=== PATIENT | female | born 1995 | race Caucasian/White ===

== ENCOUNTER 2020-02-21 00:06 | Inpatient (IN) | payer MEDICAID, OTHER ==
[~2020-02-21] VITALS: Ht 175.3 cm; Wt 74.7 kg
[2020-02-21 00:55] LABS: BASOPHILS % (AUTO) 0.6 % (0.0-2.0); EOSINOPHILS % (AUTO) 0.3 % (1.0-6.0); HEMOGLOBIN 13.5 g/dL (12.0-16.0); LYMPHOCYTES # (AUTO) 1.7 K/uL (1.0-4.8); LYMPHOCYTES % (AUTO) 21.4 % (22.0-44.0); MEAN CORPUSCULAR HGB CONC 32.8 G/dL (31.0-37.0); MEAN CORPUSCULAR VOLUME 94 fL (80-100); MONOCYTES # (AUTO) 0.6 K/uL (0.1-1.0); NEUTROPHILS # (AUTO) 5.6 K/uL (1.8-7.7); NEUTROPHILS % (AUTO) 70.7 % (40.0-70.0); PLATELET COUNT (AUTO) 213 K/uL (150-450); RED BLOOD CELL COUNT(AUTO) 4.35 MIL/uL (4.00-5.20)
[2020-02-21 01:02] LABS: ANION GAP 12 mmol/L (8-16); CALCIUM, TOTAL 9.4 mg/dL (8.8-10.5); CARBON DIOXIDE 26 mmol/L (22-29); CHLORIDE 101 mmol/L (98-107); GLOMERULAR FILTR. RATE CALC > 60 mL/min (>60); GLUCOSE,RANDOM 102 mg/dL (70-110); POTASSIUM 3.1 mmol/L (3.5-5.1); SODIUM SERUM 139 mmol/L (136-145); UREA NITROGEN, BLOOD 16 mg/dL (7-18)
[2020-02-21 01:09] LABS: ALANINE AMINOTRANSFERASE 30 U/L (12-78); ALBUMIN 4.5 g/dL (3.4-5.0); ALKALINE PHOSPHATASE 53 U/L (46-116); ASPARTATE AMINOTRANSFERASE 26 U/L (15-37); BILIRUBIN,TOTAL 0.8 mg/dL (0.1-1.0); TOTAL PROTEIN, SERUM 8.5 g/dL (6.4-8.2)
[2020-02-21] MEDS ORDERED: ALBUTEROL SULFATE 5 MG/ML 20 ML NEB SOLN [BULK] NEB ONE (01:36)
[2020-02-21 02:03] LABS: AMPHET/METH SCREEN,URINE POSITIVE (NEGATIVE); BARBITURATE SCREEN, URINE NEGATIVE (NEGATIVE); BENZODIAZEPINES SCREEN,URINE NEGATIVE (NEGATIVE); CANNABINOID SCREEN,URINE POSITIVE (NEGATIVE); COCAINE SCREEN,URINE NEGATIVE (NEGATIVE); METHADONE SCREEN, URINE NEGATIVE (NEGATIVE); OPIATE SCREEN,URINE NEGATIVE (NEGATIVE)
[2020-02-21 02:05] LABS: PHENCYCLIDINE SCREEN,URINE NEGATIVE (NEGATIVE)
[2020-02-21] MEDS ORDERED: POTASSIUM CHLORIDE 20 MEQ ER TABLET PO ONE (02:15)
[2020-02-21 02:26] LABS: HCG,QUANTITATIVE < 1 mIU/mL (0-6)
[2020-02-21] MEDS ORDERED: LORazepam 2 MG TABLET PO PRN (02:30)
[2020-02-21] MEDS ORDERED: ZOLPIDEM TARTRATE 10 MG TABLET PO PRN (02:30)
[2020-02-21] MEDS ORDERED: HALOPERIDOL 5 MG TABLET PO PRN (02:30)
[2020-02-21 03:34] LABS: APPEARANCE,URINE TURBID (CLEAR); BILIRUBIN,URINE NEGATIVE (NEGATIVE); GLUCOSE, URINE (UA) NEGATIVE (NEGATIVE); KETONES,URINE TRACE mg/dL (NEGATIVE); LEUKOCYTE ESTERASE ,URINE NEGATIVE (NEGATIVE); NITRATE,URINE NEGATIVE (NEGATIVE); OCCULT BLOOD,URINE LARGE (NEGATIVE); PH,URINE 5.5 (5.0-8.0); PROTEIN,URINE POS 1+ (NEGATIVE); UROBILINOGEN,URINE 0.2 mg/dL (<=1.0)
[2020-02-21 03:42] LABS: BACTERIA,URINE Many /HPF (None Seen); SQUAMOUS EPITHELIAL CELL,UR Few /LPF (None Seen)
[2020-02-21 08:30] VITALS: BP 100/59
[2020-02-21] MEDS: BuPROPion HCL XL 150 MG ER TABLET PO SCH (11:15)
[2020-02-21 16:00] VITALS: BP 120/73
[2020-02-21] MEDS: OLANZapine 5 MG TABLET PO SCH ×2 (17:00→17:15)
[2020-02-21] MEDS ORDERED: LOPERAMIDE HCL 2 MG CAPSULE PO PRN (21:00)
[2020-02-22 05:39] VITALS: BP 132/63
[2020-02-22 08:18] LABS: CHOL/HDL RATIO 2.1 (3.9-5.7)
[2020-02-22 08:21] VITALS: BP 107/60
[2020-02-22] MEDS: BuPROPion HCL XL 150 MG ER TABLET PO SCH (09:00)
[2020-02-22] MEDS: OLANZapine 5 MG TABLET PO SCH ×3 (09:00→17:36)
[2020-02-22 16:10] VITALS: BP 116/72
[2020-02-23 05:31] VITALS: BP 97/59
[2020-02-23 08:27] VITALS: BP 111/56
[2020-02-23] MEDS: BuPROPion HCL XL 150 MG ER TABLET PO SCH (09:00)
[2020-02-23] MEDS: OLANZapine 5 MG TABLET PO SCH ×2 (09:00→17:00)
[2020-02-23] MEDS ORDERED: IBUPROFEN 400 MG TABLET PO PRN ×2 (10:45→13:45)
[2020-02-23] MEDS ORDERED: MAGNESIUM HYDROXIDE SUSPENSION 30 ML UDCUP PO PRN ×2 (10:45→13:45)
[2020-02-23] MEDS ORDERED: LOPERAMIDE HCL 2 MG CAPSULE PO PRN ×2 (10:45→13:45)
[2020-02-23] MEDS ORDERED: GuaiFENesin/D-METHORPHAN [SUGAR-FREE] 200-20MG/10 ML SYRUP UDCUP PO PRN ×2 (10:45→13:45)
[2020-02-23] MEDS ORDERED: NICOTINE 14 MG/24 HOUR PATCH TD PRN ×2 (10:45→13:45)
[2020-02-23] MEDS ORDERED: PETROLATUM,WHITE 28 GM JELLY TP PRN ×2 (10:45→13:45)
[2020-02-23] MEDS ORDERED: ONDANSETRON HCL 4 MG TABLET PO PRN ×2 (10:45→13:45)
[2020-02-23] MEDS ORDERED: DOCUSATE SODIUM 100 MG CAPSULE PO PRN ×2 (10:45→13:45)
[2020-02-23] MEDS ORDERED: ALBUTEROL SULFATE HFA 90 MCG/PUFF 8 GM INHALER IH PRN ×2 (10:45→13:45)
[2020-02-23] MEDS ORDERED: CloNIDine HCL 0.1 MG TABLET PO PRN ×2 (10:45→13:45)
[2020-02-23] MEDS ORDERED: MAG HYDROX/AL HYDROX/SIMETH ES 30 ML SUSPENSION UDCUP PO PRN ×2 (10:45→13:45)
[2020-02-23] MEDS ORDERED: ACETAMINOPHEN 325 MG TABLET PO PRN ×2 (10:45→13:45)
[2020-02-23] MEDS: CEPHALEXIN MONOHYDRATE 500 MG CAPSULE PO SCH ×2 (12:10→17:36)
[2020-02-23 16:00] VITALS: BP 123/73
[2020-02-24 00:14] VITALS: BP 106/49
[2020-02-24 08:00] VITALS: BP 110/76
[2020-02-24] MEDS: OLANZapine 5 MG TABLET PO SCH ×2 (09:00→17:15)
[2020-02-24] MEDS: BuPROPion HCL XL 150 MG ER TABLET PO SCH (09:00)
[2020-02-24] MEDS: CEPHALEXIN MONOHYDRATE 500 MG CAPSULE PO SCH ×3 (09:12→17:15)
[2020-02-24 17:41] VITALS: BP 96/54
[2020-02-25 04:47] VITALS: BP 116/70
[2020-02-25 08:45] VITALS: BP 120/63
[2020-02-25] MEDS: CEPHALEXIN MONOHYDRATE 500 MG CAPSULE PO SCH ×3 (08:46→17:25)
[2020-02-25] MEDS: OLANZapine 5 MG TABLET PO SCH ×2 (08:46→17:25)
[2020-02-25] MEDS: BuPROPion HCL XL 150 MG ER TABLET PO SCH (08:46)
[2020-02-25] MEDS ORDERED: OLAN5TAB2 PO (10:53)
[2020-02-25] MEDS ORDERED: BUPR-93 PO (10:53)
[2020-02-25 16:28] VITALS: BP 104/60
== END 2020-02-25 18:00 | disposition home or self-care (01) | DRG 751 ==
LOC: EMS 00:08 → B3A 02:30
PROVIDERS: ADMIT Psychiatry & Neurology Psychiatry; ATTEND Psychiatry & Neurology Psychiatry
DX: F32.2 Major depressive disorder, single episode, severe without psychotic features (principal); R45.851 Suicidal ideations; E87.6 Hypokalemia; F15.10 Other stimulant abuse, uncomplicated; I10 Essential (primary) hypertension; N39.0 Urinary tract infection, site not specified; Z91.5 Personal history of self-harm; F41.9 Anxiety disorder, unspecified; F10.10 Alcohol abuse, uncomplicated; F12.10 Cannabis abuse, uncomplicated
CPT/HCPCS: 84132; 87086; G0480

== ENCOUNTER 2023-07-24 10:25 | Emergency (ER) | payer MEDICAID, OTHER ==
[~2023-07-24] VITALS: Ht 172.7 cm; Wt 84.1 kg
[~2023-07-24 10:25] MED LIST: BUPR-93 PO; OLAN5TAB52 PO
[2023-07-24 10:34] VITALS: BP 134/86; PULSE 78; RESP 16; TEMP 98.3
== END 2023-07-24 10:42 | disposition left against medical advice (07) ==
LOC: EMS 10:31
DX: Z04.89 Encounter for examination and observation for other specified reasons (principal); Z53.21 Procedure and treatment not carried out due to patient leaving prior to being seen by health care provider
CPT/HCPCS: 99281; Z7502

== ENCOUNTER 2025-10-03 17:06 | Inpatient (IN) | payer MEDICAID, OTHER ==
[~2025-10-03] VITALS: Ht 172.7 cm; Wt 70.8 kg
[~2025-10-03 17:06] MED LIST changes: -BUPR-93 PO; +MELA5TAB40 PO; +NALT50TA33 PO; +OLAN10TA26 PO; -OLAN5TAB52 PO
[2025-10-03 17:49] LABS: PLATELET COUNT (AUTO) 239 K/uL (150-450); RED BLOOD CELL COUNT(AUTO) 4.22 MIL/uL (4.00-5.20); RED CELL DISTRIBUTION WIDTH 14.9 % (11.5-14.5); WHITE BLOOD COUNT (AUTO) 15.4 K/uL (4.5-11.0)
[2025-10-03 18:00] LABS: CALCIUM, TOTAL 9.5 mg/dL (8.8-10.5); CREATININE 0.99 mg/dL (0.60-1.30); GLOMERULAR FILTR. RATE CALC > 60 mL/min (>60); GLUCOSE,RANDOM 90 mg/dL (70-110); SODIUM SERUM 144 mmol/L (136-145); UREA NITROGEN, BLOOD 23 mg/dL (7-18)
[2025-10-03] MEDS ORDERED: ZOLPIDEM TARTRATE 10 MG TABLET PO PRN (18:00)
[2025-10-03 18:06] LABS: APPEARANCE,URINE CLEAR (CLEAR); GLUCOSE, URINE (UA) NEGATIVE (NEGATIVE); LEUKOCYTE ESTERASE ,URINE NEGATIVE (NEGATIVE); NITRATE,URINE NEGATIVE (NEGATIVE); OCCULT BLOOD,URINE NEGATIVE (NEGATIVE); PH,URINE DRUG SCREEN 5.5 (5.0-8.0); SPECIFIC GRAVITIY, URINE 1.035 (1.003-1.030)
[2025-10-03 18:08] LABS: ALCOHOL, BLOOD (SERUM) < 3 mg/dL (0-10)
[2025-10-03 18:10] LABS: ASPARTATE AMINOTRANSFERASE 55 U/L (15-37); HCG,QUANTITATIVE < 1 mIU/mL (0-6); TOTAL PROTEIN, SERUM 8.2 g/dL (6.4-8.2)
[2025-10-03 18:13] LABS: ALCOHOL, URINE DRUG SCREEN NEGATIVE (NEGATIVE); AMPHET/METH SCREEN,URINE POSITIVE (NEGATIVE); BARBITURATE SCREEN, URINE NEGATIVE (NEGATIVE); CANNABINOID SCREEN,URINE POSITIVE (NEGATIVE); COCAINE SCREEN,URINE POSITIVE (NEGATIVE); METHADONE SCREEN, URINE NEGATIVE (NEGATIVE)
[2025-10-03 18:15] LABS: RBC MORPHOLOGY COMMENT NORMAL RBC MORPH
[2025-10-03] MEDS ORDERED: LORazepam 2 MG/ML VIAL ONE (18:18)
[2025-10-03] MEDS: LORazepam 2 MG/ML VIAL IM ONE (18:24)
[2025-10-03] MEDS: SODIUM CHLORIDE 0.9% 1,000 ML IV ONE (19:11)
[2025-10-03 19:44] LABS: COVID AG,FIA SOURCE NPH
[2025-10-03 20:03] LABS: SARS-COV2 (COVID) ANTIGEN,FIA Negative (Negative)
[2025-10-03 23:31] VITALS: O2SAT 97
[2025-10-04 01:14] VITALS: BP 120/68; PULSE 101; RESP 17; TEMP 98.2; O2SAT 99
[2025-10-04] MEDS ORDERED: INFLUENZA VIRUS VACCINE TVS (6MO+) 2025-26/PF 45 MCG/0.5 ML SYRINGE IM. ONE (01:30)
[2025-10-04] MEDS ORDERED: OMEPRAZOLE 20 MG CAPSULE PO PRN (07:30)
[2025-10-04] MEDS ORDERED: MAG HYDROX/ALUMINUM HYD/SIMETH ES 30 ML SUSPENSION UDCUP PO PRN (07:30)
[2025-10-04] MEDS ORDERED: IBUPROFEN 600 MG TABLET PO PRN (07:30)
[2025-10-04] MEDS ORDERED: LOPERAMIDE HCL 2 MG CAPSULE PO PRN (07:30)
[2025-10-04] MEDS ORDERED: BACITRACIN 28 GM OINTMENT TP PRN (07:30)
[2025-10-04] MEDS ORDERED: BENZOCAINE/MENTHOL [CEPACOL] LOZENGE PO PRN (07:30)
[2025-10-04] MEDS ORDERED: DOCUSATE SODIUM 100 MG CAPSULE PO PRN (07:30)
[2025-10-04] MEDS ORDERED: ACETAMINOPHEN 325 MG TABLET PO PRN (07:30)
[2025-10-04] MEDS ORDERED: ONDANSETRON 4 MG TABLET PO PRN (07:30)
[2025-10-04] MEDS ORDERED: ALBUTEROL SULFATE HFA 90 MCG/PUFF 8 GM INHALER IH PRN (07:30)
[2025-10-04] MEDS ORDERED: MAGNESIUM HYDROXIDE SUSPENSION 30 ML UDCUP PO PRN (07:30)
[2025-10-04] MEDS ORDERED: PETROLATUM,WHITE 28 GM JELLY TP PRN (07:30)
[2025-10-04 08:01] VITALS: BP 121/55; PULSE 56; RESP 16; TEMP 97.4; O2SAT 100
[2025-10-04 10:24] LABS: CHOL/HDL RATIO 1.8 (3.9-5.7); LDL CHOL (CALC.) 72.0 mg/dL (0-130)
[2025-10-04] MEDS: OLANZapine 10 MG RAPDIS TABLET PO SCH (20:11)
[2025-10-04 20:12] VITALS: BP 115/69; PULSE 65; RESP 16; TEMP 97; O2SAT 98
[2025-10-05 03:07] LABS: HEPATITIS C AB (EIA) Non Reactive (Non Reactive)
[2025-10-05 08:11] VITALS: BP 127/66; PULSE 83; RESP 17; TEMP 97.6; O2SAT 99
[2025-10-05 20:00] VITALS: BP 123/76; PULSE 84; RESP 18; TEMP 96.6; O2SAT 97
[2025-10-06 08:13] VITALS: BP 114/84; PULSE 71; RESP 16; TEMP 97.3; O2SAT 100
[2025-10-06 08:54] LABS: PLATELET COUNT (AUTO) 215 K/uL (150-450); RED BLOOD CELL COUNT(AUTO) 3.94 MIL/uL (4.00-5.20); RED CELL DISTRIBUTION WIDTH 14.8 % (11.5-14.5); WHITE BLOOD COUNT (AUTO) 4.8 K/uL (4.5-11.0)
[2025-10-06 20:53] VITALS: BP 115/82; PULSE 70; RESP 16; TEMP 97; O2SAT 98
[2025-10-07 08:00] VITALS: BP 103/65; PULSE 69; RESP 18; TEMP 97.4; O2SAT 98
[2025-10-07] MEDS ORDERED: OLAN10TA26 PO (12:30)
[2025-10-08] MEDS ORDERED: OLAN10TA26 PO (05:35)
== END 2025-10-07 18:27 | disposition home or self-care (01) | DRG 761 ==
LOC: EMS 17:06 → B3A 23:32
PROVIDERS: ADMIT Psychiatry & Neurology Psychiatry; ATTEND Psychiatry & Neurology Psychiatry
PROC: GZHZZZZ Group Psychotherapy (ICD-10-PCS; principal; 2025-10-03)
PROC: GZ51ZZZ Individual Psychotherapy, Behavioral (ICD-10-PCS; 2025-10-03)
DX: F25.0 Schizoaffective disorder, bipolar type (principal); R45.851 Suicidal ideations; F15.10 Other stimulant abuse, uncomplicated; F10.10 Alcohol abuse, uncomplicated; Z20.822 Contact with and (suspected) exposure to COVID-19; F14.10 Cocaine abuse, uncomplicated; F12.10 Cannabis abuse, uncomplicated; F41.9 Anxiety disorder, unspecified; G47.00 Insomnia, unspecified; K59.00 Constipation, unspecified; Z56.0 Unemployment, unspecified; Z78.1 Physical restraint status; F17.210 Nicotine dependence, cigarettes, uncomplicated
CPT/HCPCS: 80053; 80061; 80307; 81003; 83036; 84702; 85025; 86803; 87340; 93005; 96360; 96372; 99291; G0480; J1200; J1630; J2060; J7030; 36415-L1; 36415-TC